=== PATIENT | male | born 1970 | race Caucasian/White ===

== ENCOUNTER 2018-10-06 10:17 | Emergency (ER) | payer BC ==
[~2018-10-06] VITALS: Ht 177.8 cm; Wt 111.1 kg
--- NOTE | 2018-10-06 10:22 | NUR ---
1ST CALL, CALLED FOR TRIAGE NOT IN THE WAITING ROOM
--- NOTE | 2018-10-06 10:35 | NUR ---
2ND CALL FOR TRIAGE NOT IN THE WAITING ROOM.
[2018-10-06 10:53] VITALS: BP 151/99
== END 2018-10-06 11:26 | disposition home or self-care (01) ==
LOC: ER 10:21
DX: J06.9 Acute upper respiratory infection, unspecified (principal); Z88.0 Allergy status to penicillin
CPT/HCPCS: 87400